=== PATIENT | female | born 2000 | race Caucasian/White ===

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

== ENCOUNTER 2021-05-24 00:07 | Emergency (ER) | payer MEDICAID ==
[~2021-05-24] VITALS: Ht 172.7 cm; Wt 120.5 kg
[2021-05-24 01:01] LABS: BASO % 0.2 % (0.0-2.0); EOS % 0.2 % (0-4.0); GRAN # 9.8 (1.4-6.5); GRAN % 86.1 % (42.2-75.2); HEMATOCRIT 38.4 % (35.0-45.0); HEMOGLOBIN 12.2 g/dl (12.0-15.0); LYMPH # 0.9 (1.2-3.4); LYMPH % 8.1 % (20.0-51.0); MEAN CELL VOLUME 75 fl (80.0-95.0); MEAN CORPUSCULAR HEMOGLOBIN 24 pg (26.0-32.0); MEAN CORPUSCULAR HGB CONC 32 g/dl (33.0-37.0); MEAN PLATELET VOLUME 8.9 fl (7.4-10.4); MONO # 0.6 (0.1-0.6); MONO % 5.1 % (1.7-9.3); PLATELET COUNT 281 K/mm3 (130-400); RED BLOOD COUNT 5.11 M/mm3 (4.10-5.30); REDCELL DISTRIBUTION WIDTH-CV 16.7 % (11.5-14.5)
[2021-05-24 01:23] LABS: ALBUMIN 4.2 gm/dL (3.5-5.0); BILIRUBIN,TOTAL 0.1 mg/dL (0.0-1.0); CALCIUM 8.8 mg/dL (8.4-10.2); CREATININE, serum 0.67 (0.52-1.25); POTASSIUM 3.3 mmol/L (3.4-5.0); TOTAL PROTEIN 8.6 gm/dL (6.4-8.2)
[2021-05-24 02:48] VITALS: BP 139/83; PULSE 106; TEMP 99.4
[2021-05-24] MEDS ORDERED: ZOFRAN ODT4 MG PO (22:50)
[2021-05-24] MEDS ORDERED: CIPRO 500MG TA500 MG PO (22:50)
== END 2021-05-24 03:05 | disposition home or self-care (01) ==
LOC: COL.ER 00:07
PROVIDERS: Personal Emergency Response Attendant
DX: R19.7 Diarrhea, unspecified (principal); R50.9 Fever, unspecified
CPT/HCPCS: C9113; J7030

== ENCOUNTER 2021-05-24 18:27 | Emergency (ER) | payer MEDICAID ==
[~2021-05-24] VITALS: Ht 172.7 cm; Wt 120.5 kg
[2021-05-24 20:03] LABS: BASO % 0.2 % (0.0-2.0); EOS % 0.3 % (0-4.0); GRAN # 10.1 (1.4-6.5); GRAN % 83.5 % (42.2-75.2); HEMATOCRIT 39.2 % (35.0-45.0); HEMOGLOBIN 12.5 g/dl (12.0-15.0); LYMPH # 1.2 (1.2-3.4); LYMPH % 9.6 % (20.0-51.0); MEAN CELL VOLUME 76 fl (80.0-95.0); MEAN CORPUSCULAR HEMOGLOBIN 24 pg (26.0-32.0); MEAN CORPUSCULAR HGB CONC 32 g/dl (33.0-37.0); MEAN PLATELET VOLUME 9.1 fl (7.4-10.4); MONO # 0.7 (0.1-0.6); PLATELET COUNT 372 K/mm3 (130-400); RED BLOOD COUNT 5.19 M/mm3 (4.10-5.30)
[2021-05-24 20:16] LABS: ALANINE AMINOTRANSFERASE 14 U/L (4-34); ALBUMIN 3.9 gm/dL (3.5-5.0); ALKALINE PHOSPHATASE 82 U/L (50-136); ANION GAP 9 mmol/L (7-16); AST,SGOT 20 U/L (15-37); BILIRUBIN,TOTAL < 0.1 mg/dL (0.0-1.0); BLOOD UREA NITROGEN 4 mg/dL (7-17); CALCIUM 8.6 mg/dL (8.4-10.2); CARBON DIOXIDE 21 mmol/L (22-30); CHLORIDE 104 mmol/L (98-107); CREATININE, serum 0.79 (0.52-1.25); GLUCOSE 101 mg/dL (74-106); LIPASE 35 U/L (23-300); POTASSIUM 3.3 mmol/L (3.4-5.0); SODIUM 134 mmol/L (137-145); TOTAL PROTEIN 7.9 gm/dL (6.4-8.2)
[2021-05-24] MEDS ORDERED: CIPRO 500MG TA500 MG PO (22:50)
[2021-05-24] MEDS ORDERED: ZOFRAN ODT4 MG PO (22:50)
[2021-05-24 23:09] VITALS: BP 92/50; PULSE 106; TEMP 98.6
== END 2021-05-24 23:11 | disposition home or self-care (01) ==
LOC: COL.ER 18:27
PROVIDERS: Personal Emergency Response Attendant
DX: K51.00 Ulcerative (chronic) pancolitis without complications (principal); Z20.822 Contact with and (suspected) exposure to COVID-19; Z88.1 Allergy status to other antibiotic agents
CPT/HCPCS: C9113; J2405; J7030; Q9967